=== PATIENT | male | born 1965 | race Hispanic/Latino ===

== ENCOUNTER 2022-01-14 20:10 | Inpatient (IN) | payer OTHER ==
[~2022-01-14] VITALS: Ht 162.6 cm; Wt 49.0 kg
[~2022-01-14 20:10] MED LIST: AMOX1TAB16 PO; ETOMIDATE 20MG VIAL IVP ONE; ROCURONIUM BROMIDE 10MG/1ML 5ML VL IV ONE
[2022-01-14] MEDS ORDERED: 0.9%NACL 1000ML 1,000 ML IV ONE (21:30)
[2022-01-14 22:04] LABS: BASOPHILS % (AUTO) 0.7 % (0.0-5.0); HEMATOCRIT 28.2 % (42-54); MEAN CORPUSCULAR HEMOGLOBIN 25.9 pg (27.0-33.0); MEAN CORPUSCULAR HGB CONC 32.3 g/dL (32.0-36.0); MEAN CORPUSCULAR VOLUME 80.3 fL (79-99); MONOCYTES % (AUTO) 4.5 % (3.0-13.0); NEUTROPHILS % (AUTO) 20.9 % (40.0-77.0); PLATELET COUNT (AUTO) 144 K/uL (130-400); RED BLOOD CELL COUNT(AUTO) 3.51 MIL/uL (4.50-6.20); RED CELL DISTRIBUTION WIDTH 17.2 % (11.0-15.5); WHITE BLOOD COUNT (AUTO) 1.3 K/uL (4.8-10.8)
[2022-01-14 22:15] LABS: CARBON DIOXIDE 30 mmol/L (21-32); CHLORIDE 101 mmol/L (101-111); GLOMERULAR FILTR. RATE CALC 82 mL/min (>60); GLUCOSE,RANDOM 54 mg/dL (70-105); POTASSIUM 3.6 mmol/L (3.5-5.1); SODIUM SERUM 140 mmol/L (136-145); UREA NITROGEN, BLOOD 41 mg/dL (7-18)
[2022-01-14 22:19] LABS: ALANINE AMINOTRANSFERASE 85 U/L (12-78); ALBUMIN 1.3 g/dL (3.5-5.0); ASPARTATE AMINOTRANSFERASE 352 U/L (10-37); CREATINE KINASE, TOTAL 118 U/L (21-232); TOTAL PROTEIN, SERUM 5.3 g/dL (6.0-8.3)
[2022-01-14 22:22] LABS: INR 1.57 (0.85-1.15); PROTHROMBIN TIME 16.7 SEC (9.6-11.6)
[2022-01-14 22:23] LABS: LIPASE < 10 U/L (114-286)
[2022-01-14] MEDS ORDERED: DEXTROSE 50%-WATER 50 ML DISP.SYRIN IV ONE (22:30)
[2022-01-14 23:43] LABS: PLATELET MORPHOLOGY LARGE PLTS PRESENT
[2022-01-15] VITALS (48 sets, daily range): BP systolic 71–116; BP diastolic 41–72
[2022-01-15] MEDS ORDERED: 0.9%NACL 1000ML 1,000 ML IV SCH ×2 (02:30→03:30)
[2022-01-15] MEDS ORDERED: MORPHINE 2 MG SYG IV PRN (02:30)
[2022-01-15] MEDS ORDERED: ACETAMINOPHEN 325 MG TAB PO PRN ×2 (02:30)
[2022-01-15] MEDS ORDERED: ONDANSETRON 4MG INJ IV PRN (02:30)
[2022-01-15] MEDS ORDERED: DEXTROSE 50%-WATER 50 ML DISP.SYRIN IV ONE ×3 (04:20→11:18)
[2022-01-15] MEDS ORDERED: DEXTROSE 5%-WATER 1,000 ML IV SCH (04:30)
[2022-01-15 04:58] LABS: ABG HCO3 25.2 mmol/L (21.0-28.0); ABG OXYGEN SATURATION 92.8 % (95.0-99.0); ABG PCO2 35 mmHg (35-48)
[2022-01-15] MEDS ORDERED: ZOSYN 3.375GM +NS 50ML IV SCH (05:00)
[2022-01-15] MEDS ORDERED: IPRATROPIUM/ALBUTEROL SULFATE 3 ML SOLUTION IH ONE (05:00)
[2022-01-15 05:22] LABS: HEMATOCRIT 26.9 % (42-54); LYMPHOCYTES % (AUTO) 5.9 % (21.0-51.0); MEAN CORPUSCULAR HGB CONC 32.3 g/dL (32.0-36.0); MEAN CORPUSCULAR VOLUME 80.5 fL (79-99); MONOCYTES % (AUTO) 4.4 % (3.0-13.0); NEUTROPHILS % (AUTO) 7.3 % (40.0-77.0); PLATELET COUNT (AUTO) 157 K/uL (130-400); RED BLOOD CELL COUNT(AUTO) 3.34 MIL/uL (4.50-6.20); RED CELL DISTRIBUTION WIDTH 17.3 % (11.0-15.5)
[2022-01-15 05:24] LABS: WHITE BLOOD COUNT (AUTO) 0.7 K/uL (4.8-10.8)
[2022-01-15 05:39] LABS: ALBUMIN 1.1 g/dL (3.5-5.0); CREATININE 0.9 mg/dL (0.5-1.5); POTASSIUM 4.5 mmol/L (3.5-5.1); TOTAL PROTEIN, SERUM 4.7 g/dL (6.0-8.3)
[2022-01-15] MEDS ORDERED: ALBUMIN (HUMAN) 25% 100 ML IV PRN (06:30)
[2022-01-15] MEDS ORDERED: DEXTROSE 5%-WATER 250 ML IV ONE (06:31)
[2022-01-15] MEDS ORDERED: ALBUMIN (HUMAN) 25% 100 ML IV ONE (06:31)
[2022-01-15 08:56] LABS: APPEARANCE,URINE SL CLOUDY (CLEAR); BILIRUBIN,URINE NEGATIVE (NEGATIVE); COLOR,URINE RED (YELLOW); GLUCOSE, URINE (UA) NEGATIVE (NEGATIVE); KETONES,URINE 5 mg/dL (NEGATIVE); LEUKOCYTE ESTERASE ,URINE TRACE Leu/uL (NEGATIVE); NITRATE,URINE NEGATIVE (NEGATIVE); OCCULT BLOOD,URINE LARGE (NEGATIVE); PH,URINE 5.5 (5.0-8.0); PROTEIN,URINE 100 mg/dL (NEGATIVE)
[2022-01-15] MEDS ORDERED: FAMOTIDINE 20MG VIAL IV SCH (09:00)
[2022-01-15] MEDS ORDERED: 0.9%NACL 1000ML 1,185 ML IV SCH (09:00)
[2022-01-15] MEDS ORDERED: RENAL DOSE IV PRN (09:00)
[2022-01-15] MEDS ORDERED: BACTRIM 800MG/160MG 10ML VIAL 0 MG in 0.9%NACL 100ML 100 ML IV SCH (09:00)
[2022-01-15 09:11] LABS: AMPHET/METH SCREEN,URINE NEGATIVE (NEGATIVE); BARBITURATE SCREEN, URINE NEGATIVE (NEGATIVE); BENZODIAZEPINES SCREEN,URINE NEGATIVE (NEGATIVE); CANNABINOID SCREEN,URINE NEGATIVE (NEGATIVE); COCAINE SCREEN,URINE NEGATIVE (NEGATIVE); OPIATE SCREEN,URINE NEGATIVE (NEGATIVE); PHENCYCLIDINE SCREEN,URINE NEGATIVE (NEGATIVE)
[2022-01-15] MEDS: NOREPINEPHRIN 4MG/NS 250ML 250 ML IV PRN ×6 (09:11→18:09)
[2022-01-15 09:12] LABS: BACTERIA,URINE Few /HPF (None Seen); RBC,URINE T /HPF (0-1)
[2022-01-15] MEDS ORDERED: SOLU-MEDROL 40MG VIAL IVP SCH (09:30)
[2022-01-15] MEDS ORDERED: THIAMINE HCL 100 MG/ML 2ML VIAL IVP SCH (09:30)
[2022-01-15] MEDS: M.V.I. IV [ADULT] 10 ML, FOLIC ACID 1 MG, THIAMINE HCL 100 MG in 0.9%NACL 1000ML 1,000 ML IV SCH (09:39)
[2022-01-15 09:59] LABS: CREATINE KINASE, TOTAL 81 U/L (21-232); MYOGLOBIN 571 ng/mL (10-92)
[2022-01-15] MEDS ORDERED: VASOPRESSIN 20 UNITS in 0.9%NACL 100ML 100 ML IV SCH (10:00)
[2022-01-15] MEDS: PANTOPRAZOLE 40 MG/VIAL IVP SCH ×2 (10:12→20:01)
[2022-01-15 11:22] LABS: ABG BASE EXCESS -2.9 mmol/L (-2.0-3.0); ABG HCO3 22.2 mmol/L (21.0-28.0); ABG OXYGEN SATURATION 65.4 % (95.0-99.0); ABG PCO2 40 mmHg (35-48)
[2022-01-15] MEDS: IPRATROPIUM/ALBUTEROL SULFATE 3 ML SOLUTION IH SCH ×3 (11:29→23:21)
[2022-01-15] MEDS ORDERED: FENTANYL 2500MCG+NS 250ML 250 ML IV ONE (11:57)
[2022-01-15] MEDS ORDERED: FENTANYL 2500MCG+NS 250ML IV.SOLN IV SCH (12:30)
[2022-01-15 12:41] LABS: ABG BASE EXCESS -7.1 mmol/L (-2.0-3.0); ABG HCO3 20.5 mmol/L (21.0-28.0); ABG OXYGEN SATURATION 92.4 % (95.0-99.0); ABG PCO2 51 mmHg (35-48)
[2022-01-15] MEDS: ZOSYN 3.375GM +NS 50ML IV SCH ×2 (13:11→20:01)
[2022-01-15] MEDS: MIDAZOLAM 100MG-0.9% NS 100ML 100ML BAG IV SCH (13:13)
[2022-01-15] MEDS ORDERED: KCL 20 MEQ ERTAB PO PRN (13:30)
[2022-01-15] MEDS ORDERED: LIDOCAINE HCL-MPF 1% 2ML VIAL IV PRN (13:30)
[2022-01-15] MEDS ORDERED: GLUCAGON 1MG KIT 1 MG ML IM PRN (14:00)
[2022-01-15] MEDS ORDERED: BACTRIM IV SCH (14:00)
[2022-01-15] MEDS ORDERED: 0.9% NACL 250ML IV SCH (14:00)
[2022-01-15] MEDS ORDERED: VANCOMYCIN PROTOCOL PER PHARMACY IV SCH (14:00)
[2022-01-15] MEDS ORDERED: PANTOPRAZOLE 40 MG/VIAL IVP SCH (14:00)
[2022-01-15] MEDS ORDERED: VANCOMYCIN 1G VIAL IVPB SCH (14:00)
[2022-01-15] MEDS ORDERED: NACL 0.9% IV SCH (14:00)
[2022-01-15 14:07] LABS: POTASSIUM 3.5 mmol/L (3.5-5.1)
[2022-01-15] MEDS: BACTRIM IV SCH ×2 (14:49→21:04)
[2022-01-15] MEDS: NACL 0.9% IV SCH ×2 (14:49→21:04)
[2022-01-15] MEDS: POTASSIUM CHLORIDE 10% ELIXIR 20 MEQ/15 ML UDCUP PO PRN ×2 (14:50→18:09)
[2022-01-15] MEDS: HEPARIN 5,000 UNIT VIAL SQ SCH (14:51)
[2022-01-15] MEDS: VANCOMYCIN 750MG VIAL IVPB SCH (15:24)
[2022-01-15] MEDS: 0.9% NACL 250ML 250 ML IV SCH (15:24)
[2022-01-15] MEDS: SOLU-MEDROL 40MG VIAL IVP SCH (16:38)
[2022-01-15] MEDS ORDERED: PHARMACY COMMUNICATION MISC SCH (19:30)
[2022-01-15] MEDS: NOREPINEPHRINE 16MG/NS 250ML 250 ML IV SCH (20:59)
[2022-01-15] MEDS ORDERED: VASOPRESSIN 40 UNITS in 0.9%NACL 50ML 40 ML IV SCH (21:30)
[2022-01-15 21:49] LABS: ABG BASE EXCESS -7.9 mmol/L (-2.0-3.0); ABG HCO3 21.1 mmol/L (21.0-28.0); ABG OXYGEN SATURATION 95.8 % (95.0-99.0); ABG PCO2 62 mmHg (35-48)
[2022-01-15] MEDS ORDERED: LACTATED RINGERS 1000ML IV SCH (22:30)
[2022-01-15] MEDS ORDERED: EPINEPHRINE PF 1MG (1:1,000) 10 MG in 0.9% NACL 250ML 250 ML IV SCH (23:00)
[2022-01-15] MEDS ORDERED: PHENYLEPHRINE HCL 100 MG in 0.9% NACL 250ML 250 ML IV SCH (23:00)
[2022-01-15] MEDS: LACTATED RINGERS 1000ML 1,000 ML IV SCH (23:08)
[2022-01-15] MEDS: DEXTROSE 10%-WATER 1,000 ML IV SCH (23:10)
[2022-01-15] MEDS: DEXTROSE 50%-WATER 50 ML DISP.SYRIN IV PRN (23:42)
[2022-01-16] VITALS (84 sets, daily range): BP systolic 62–130; BP diastolic 40–90
[2022-01-16] MEDS: SOLU-MEDROL 40MG VIAL IVP SCH ×3 (00:59→18:34)
[2022-01-16] MEDS: HEPARIN 5,000 UNIT VIAL SQ SCH (01:01)
[2022-01-16] MEDS: NOREPINEPHRINE 16MG/NS 250ML 250 ML IV SCH ×4 (03:09→23:31)
[2022-01-16] MEDS: ZOSYN 3.375GM +NS 50ML IV SCH ×3 (04:09→20:22)
[2022-01-16 04:28] LABS: BASOPHILS % (AUTO) 0.3 % (0.0-5.0); HEMATOCRIT 26.1 % (42-54); LYMPHOCYTES % (AUTO) 2.7 % (21.0-51.0); MEAN CORPUSCULAR HEMOGLOBIN 25.6 pg (27.0-33.0); MEAN CORPUSCULAR HGB CONC 30.7 g/dL (32.0-36.0); MEAN CORPUSCULAR VOLUME 83.7 fL (79-99); MONOCYTES % (AUTO) 5.4 % (3.0-13.0); NEUTROPHILS % (AUTO) 74.1 % (40.0-77.0); PLATELET COUNT (AUTO) 82 K/uL (130-400); RED BLOOD CELL COUNT(AUTO) 3.12 MIL/uL (4.50-6.20); RED CELL DISTRIBUTION WIDTH 17.2 % (11.0-15.5); WHITE BLOOD COUNT (AUTO) 3.3 K/uL (4.8-10.8)
[2022-01-16 04:43] LABS: ALBUMIN 1.1 g/dL (3.5-5.0); MAGNESIUM 1.7 mg/dL (1.80-2.40); PHOSPHORUS 7.1 mg/dL (2.5-4.9)
[2022-01-16] MEDS: MAGNESIUM 2GM PREMIX 50ML 50 ML IV PRN (05:07)
[2022-01-16] MEDS: IPRATROPIUM/ALBUTEROL SULFATE 3 ML SOLUTION IH SCH ×4 (06:15→23:32)
[2022-01-16] MEDS: BACTRIM IV SCH ×3 (06:51→22:24)
[2022-01-16] MEDS: NACL 0.9% IV SCH ×3 (06:51→22:24)
[2022-01-16 07:47] LABS: ABG BASE EXCESS -7.8 mmol/L (-2.0-3.0); ABG HCO3 17.9 mmol/L (21.0-28.0); ABG OXYGEN SATURATION 99.2 % (95.0-99.0); ABG PCO2 37 mmHg (35-48)
[2022-01-16] MEDS ORDERED: DEXTROSE 50%-WATER 50 ML DISP.SYRIN IV PRN (08:00)
[2022-01-16] MEDS ORDERED: MAGNESIUM 2GM PREMIX 50ML 50 ML IV PRN (08:00)
[2022-01-16] MEDS ORDERED: SODIUM BICARB 50MEQ 50ML VIAL IV SCH (08:00)
[2022-01-16] MEDS ORDERED: GLUCAGON 1MG KIT 1 MG ML IM PRN (08:00)
[2022-01-16] MEDS: M.V.I. IV [ADULT] 10 ML, FOLIC ACID 1 MG, THIAMINE HCL 100 MG in 0.9%NACL 1000ML 1,000 ML IV SCH (08:05)
[2022-01-16] MEDS: LACTATED RINGERS 1000ML 1,000 ML IV SCH (08:06)
[2022-01-16] MEDS ORDERED: PANTOPRAZOLE 40 MG/VIAL IVP SCH (09:00)
[2022-01-16] MEDS: PANTOPRAZOLE 40 MG/VIAL IVP SCH ×2 (09:23→20:22)
[2022-01-16] MEDS: FLUCONAZOLE 400 MG/NS 200 ML 200 ML IV SCH (09:24)
[2022-01-16] MEDS: THIAMINE HCL 100 MG/ML 2ML VIAL IVP SCH (09:24)
[2022-01-16] MEDS ORDERED: PHENTOLAMINE MESYLATE 5 MG VIAL ICAV SCH (11:00)
[2022-01-16] MEDS: MIDAZOLAM 100MG-0.9% NS 100ML 100ML BAG IV SCH (12:23)
[2022-01-16] MEDS: ARTIFICIAL TEARS 3.5 GM OINTMENT OU SCH (12:31)
[2022-01-16] MEDS: CHLORHEXIDINE GLUCONATE 473 ML MOUTHWASH MM SCH ×2 (12:31→20:23)
[2022-01-16 13:48] LABS: ABG BASE EXCESS -4.6 mmol/L (-2.0-3.0); ABG HCO3 20.6 mmol/L (21.0-28.0); ABG OXYGEN SATURATION 77.1 % (95.0-99.0); ABG PCO2 38 mmHg (35-48)
[2022-01-16 14:04] LABS: ABG BASE EXCESS -5.3 mmol/L (-2.0-3.0); ABG HCO3 19.5 mmol/L (21.0-28.0); ABG OXYGEN SATURATION 98.9 % (95.0-99.0); ABG PCO2 35 mmHg (35-48)
[2022-01-16] MEDS: VANCOMYCIN 750MG VIAL IVPB SCH (14:40)
[2022-01-16] MEDS: 0.9% NACL 250ML 250 ML IV SCH (14:40)
[2022-01-16] MEDS: DEXTROSE 10%-WATER 1,000 ML IV SCH (23:27)
[2022-01-17] VITALS (50 sets, daily range): BP systolic 85–122; BP diastolic 54–89
[2022-01-17] MEDS: SOLU-MEDROL 40MG VIAL IVP SCH ×3 (01:54→17:54)
[2022-01-17 04:10] LABS: MAGNESIUM 1.9 mg/dL (1.80-2.40); PHOSPHORUS 4.9 mg/dL (2.5-4.9); POTASSIUM 3.6 mmol/L (3.5-5.1); TOTAL PROTEIN, SERUM 4.1 g/dL (6.0-8.3)
[2022-01-17] MEDS: ZOSYN 3.375GM +NS 50ML IV SCH ×3 (04:42→21:08)
[2022-01-17] MEDS: MAGNESIUM 2GM PREMIX 50ML 50 ML IV PRN (04:43)
[2022-01-17] MEDS: NOREPINEPHRINE 16MG/NS 250ML 250 ML IV SCH ×2 (04:51→16:22)
[2022-01-17 05:52] LABS: BASOPHILS % (AUTO) 0.6 % (0.0-5.0); HEMATOCRIT 24.5 % (42-54); LYMPHOCYTES % (AUTO) 2.7 % (21.0-51.0); MEAN CORPUSCULAR HEMOGLOBIN 26.2 pg (27.0-33.0); MEAN CORPUSCULAR HGB CONC 32.2 g/dL (32.0-36.0); MEAN CORPUSCULAR VOLUME 81.4 fL (79-99); MONOCYTES % (AUTO) 4.5 % (3.0-13.0); NEUTROPHILS % (AUTO) 77.4 % (40.0-77.0); RED BLOOD CELL COUNT(AUTO) 3.01 MIL/uL (4.50-6.20); RED CELL DISTRIBUTION WIDTH 17.3 % (11.0-15.5); WHITE BLOOD COUNT (AUTO) 4.9 K/uL (4.8-10.8)
[2022-01-17 05:59] LABS: PLATELET COUNT (AUTO) 18 K/uL (130-400)
[2022-01-17] MEDS: IPRATROPIUM/ALBUTEROL SULFATE 3 ML SOLUTION IH SCH ×4 (06:25→23:23)
[2022-01-17] MEDS: NACL 0.9% IV SCH ×3 (07:24→21:08)
[2022-01-17] MEDS: M.V.I. IV [ADULT] 10 ML, FOLIC ACID 1 MG, THIAMINE HCL 100 MG in 0.9%NACL 1000ML 1,000 ML IV SCH (07:24)
[2022-01-17] MEDS: BACTRIM IV SCH ×3 (07:24→21:08)
[2022-01-17 08:13] LABS: ABG HCO3 20.6 mmol/L (21.0-28.0); ABG OXYGEN SATURATION 79.3 % (95.0-99.0); ABG PCO2 40 mmHg (35-48)
[2022-01-17] MEDS: FLUCONAZOLE 400 MG/NS 200 ML 200 ML IV SCH (08:20)
[2022-01-17] MEDS: THIAMINE HCL 100 MG/ML 2ML VIAL IVP SCH (08:21)
[2022-01-17] MEDS: PANTOPRAZOLE 40 MG/VIAL IVP SCH ×2 (08:21→21:08)
[2022-01-17 08:37] LABS: ABG BASE EXCESS -5.2 mmol/L (-2.0-3.0); ABG HCO3 19.7 mmol/L (21.0-28.0); ABG PCO2 36 mmHg (35-48)
[2022-01-17] MEDS: CHLORHEXIDINE GLUCONATE 473 ML MOUTHWASH MM SCH ×2 (09:36→21:09)
[2022-01-17] MEDS: MIDAZOLAM 100MG-0.9% NS 100ML 100ML BAG IV SCH (12:24)
[2022-01-17] MEDS: DEXTROSE 10%-WATER 1,000 ML IV SCH (12:41)
[2022-01-17] MEDS ORDERED: VANCOMYCIN 1G/250ML KIT 250 ML IV ONE (16:00)
[2022-01-17] MEDS: ARTIFICIAL TEARS 3.5 GM OINTMENT OU SCH (21:09)
[2022-01-18] VITALS (49 sets, daily range): BP systolic 79–122; BP diastolic 44–81
[2022-01-18] MEDS: SOLU-MEDROL 40MG VIAL IVP SCH ×3 (01:39→16:49)
[2022-01-18] MEDS: NOREPINEPHRINE 16MG/NS 250ML 250 ML IV SCH (03:22)
[2022-01-18 03:32] LABS: BASOPHILS % (AUTO) 0.4 % (0.0-5.0); HEMATOCRIT 23.9 % (42-54); LYMPHOCYTES % (AUTO) 1.9 % (21.0-51.0); MEAN CORPUSCULAR HGB CONC 32.2 g/dL (32.0-36.0); MEAN CORPUSCULAR VOLUME 80.7 fL (79-99); MONOCYTES % (AUTO) 2.5 % (3.0-13.0); NEUTROPHILS % (AUTO) 82.7 % (40.0-77.0); PLATELET COUNT (AUTO) 22 K/uL (130-400); RED BLOOD CELL COUNT(AUTO) 2.96 MIL/uL (4.50-6.20); RED CELL DISTRIBUTION WIDTH 17.4 % (11.0-15.5); WHITE BLOOD COUNT (AUTO) 6.9 K/uL (4.8-10.8)
[2022-01-18 03:44] LABS: CREATININE 0.8 mg/dL (0.5-1.5); MAGNESIUM 1.8 mg/dL (1.80-2.40); PHOSPHORUS 3.6 mg/dL (2.5-4.9); POTASSIUM 3.8 mmol/L (3.5-5.1); TOTAL PROTEIN, SERUM 4.2 g/dL (6.0-8.3)
[2022-01-18] MEDS: ZOSYN 3.375GM +NS 50ML IV SCH ×3 (04:32→20:59)
[2022-01-18] MEDS: IPRATROPIUM/ALBUTEROL SULFATE 3 ML SOLUTION IH SCH ×3 (06:49→19:09)
[2022-01-18] MEDS: FLUCONAZOLE 400 MG/NS 200 ML 200 ML IV SCH (08:07)
[2022-01-18] MEDS: PANTOPRAZOLE 40 MG/VIAL IVP SCH ×2 (08:07→21:00)
[2022-01-18] MEDS: VANCOMYCIN 750MG VIAL IVPB SCH ×2 (08:07→17:07)
[2022-01-18] MEDS: THIAMINE HCL 100 MG/ML 2ML VIAL IVP SCH (08:07)
[2022-01-18] MEDS: CHLORHEXIDINE GLUCONATE 473 ML MOUTHWASH MM SCH ×2 (09:05→21:03)
[2022-01-18] MEDS: NACL 0.9% IV SCH ×3 (09:32→22:11)
[2022-01-18] MEDS: BACTRIM IV SCH ×3 (09:32→22:11)
[2022-01-18] MEDS: MIDAZOLAM 100MG-0.9% NS 100ML 100ML BAG IV SCH (11:58)
[2022-01-18] MEDS: M.V.I. IV [ADULT] 10 ML, FOLIC ACID 1 MG, THIAMINE HCL 100 MG in 0.9%NACL 1000ML 1,000 ML IV SCH (13:06)
[2022-01-18] MEDS: ARTIFICIAL TEARS 3.5 GM OINTMENT OU SCH (21:04)
[2022-01-19] VITALS (44 sets, daily range): BP systolic 85–124; BP diastolic 39–93
[2022-01-19] MEDS: IPRATROPIUM/ALBUTEROL SULFATE 3 ML SOLUTION IH SCH ×5 (01:06→23:20)
[2022-01-19] MEDS: SOLU-MEDROL 40MG VIAL IVP SCH ×3 (01:48→17:08)
[2022-01-19 05:31] LABS: BASOPHILS % (AUTO) 0.3 % (0.0-5.0); HEMATOCRIT 22.4 % (42-54); LYMPHOCYTES % (AUTO) 2.3 % (21.0-51.0); MEAN CORPUSCULAR HEMOGLOBIN 25.6 pg (27.0-33.0); MEAN CORPUSCULAR HGB CONC 32.1 g/dL (32.0-36.0); MEAN CORPUSCULAR VOLUME 79.7 fL (79-99); MONOCYTES % (AUTO) 3.1 % (3.0-13.0); NEUTROPHILS % (AUTO) 81.3 % (40.0-77.0); PLATELET COUNT (AUTO) 15 K/uL (130-400); RED BLOOD CELL COUNT(AUTO) 2.81 MIL/uL (4.50-6.20); RED CELL DISTRIBUTION WIDTH 17.8 % (11.0-15.5); WHITE BLOOD COUNT (AUTO) 6.2 K/uL (4.8-10.8)
[2022-01-19] MEDS: ZOSYN 3.375GM +NS 50ML IV SCH ×3 (05:31→20:47)
[2022-01-19] MEDS: VANCOMYCIN 750MG VIAL IVPB SCH ×2 (05:39→17:09)
[2022-01-19 05:48] LABS: CREATININE 0.7 mg/dL (0.5-1.5); MAGNESIUM 1.7 mg/dL (1.80-2.40); PHOSPHORUS 3.2 mg/dL (2.5-4.9); POTASSIUM 3.7 mmol/L (3.5-5.1); TOTAL PROTEIN, SERUM 4.2 g/dL (6.0-8.3)
[2022-01-19] MEDS: POTASSIUM CHLORIDE 10% ELIXIR 20 MEQ/15 ML UDCUP PO PRN (06:29)
[2022-01-19] MEDS: BACTRIM IV SCH ×3 (07:33→20:46)
[2022-01-19] MEDS: NACL 0.9% IV SCH ×3 (07:33→20:46)
[2022-01-19] MEDS: M.V.I. IV [ADULT] 10 ML, FOLIC ACID 1 MG, THIAMINE HCL 100 MG in 0.9%NACL 1000ML 1,000 ML IV SCH (08:00)
[2022-01-19 08:45] LABS: ABG BASE EXCESS -2.9 mmol/L (-2.0-3.0); ABG HCO3 19.9 mmol/L (21.0-28.0); ABG OXYGEN SATURATION 95.5 % (95.0-99.0); ABG PCO2 27 mmHg (35-48)
[2022-01-19] MEDS: CHLORHEXIDINE GLUCONATE 473 ML MOUTHWASH MM SCH ×2 (09:25→20:54)
[2022-01-19] MEDS: THIAMINE HCL 100 MG/ML 2ML VIAL IVP SCH (09:25)
[2022-01-19] MEDS: PANTOPRAZOLE 40 MG/VIAL IVP SCH ×2 (09:25→20:50)
[2022-01-19] MEDS: FLUCONAZOLE 400 MG/NS 200 ML 200 ML IV SCH (09:26)
[2022-01-19] MEDS: MAGNESIUM 2GM PREMIX 50ML 50 ML IV PRN (09:27)
[2022-01-19] MEDS ORDERED: DEXMEDETOMIDINE 400MCG/NS100ML IV ONE (10:58)
[2022-01-19] MEDS ORDERED: SODIUM CHLORIDE 3% FOR INHALATION 4 ML/AMP VIAL.NEB IH ONE (11:05)
[2022-01-19 12:11] LABS: ABG BASE EXCESS -1.5 mmol/L (-2.0-3.0); ABG HCO3 21.8 mmol/L (21.0-28.0); ABG OXYGEN SATURATION 98.3 % (95.0-99.0); ABG PCO2 30 mmHg (35-48)
[2022-01-19] MEDS: MIDAZOLAM 100MG-0.9% NS 100ML 100ML BAG IV SCH (12:30)
[2022-01-19] MEDS: DEXMEDETOMIDINE 400MCG/NS100ML IV SCH ×2 (13:24→20:49)
[2022-01-19] MEDS: BALSAM PERU/CASTOR OIL 60 GM TUBE TP SCH ×2 (14:13→20:54)
[2022-01-19] MEDS ORDERED: FUROSEMIDE 20MG VIAL IV SCH (15:30)
[2022-01-19] MEDS: POTASSIUM CHLORIDE 20MEQ/100ML 100 ML IV PRN (20:50)
[2022-01-19] MEDS: ARTIFICIAL TEARS 3.5 GM OINTMENT OU SCH (20:53)
[2022-01-20] VITALS (75 sets, daily range): BP systolic 78–124; BP diastolic 36–85
[2022-01-20] MEDS: SOLU-MEDROL 40MG VIAL IVP SCH ×2 (01:54→09:01)
[2022-01-20] MEDS ORDERED: NOREPINEPHRINE BITARTRATE 1 MG/1 ML ML IV ONE ×2 (03:48→03:53)
[2022-01-20 04:04] LABS: BASOPHILS % (AUTO) 0.1 % (0.0-5.0); HEMATOCRIT 24.2 % (42-54); LYMPHOCYTES % (AUTO) 2.2 % (21.0-51.0); MEAN CORPUSCULAR HEMOGLOBIN 25.7 pg (27.0-33.0); MEAN CORPUSCULAR HGB CONC 32.6 g/dL (32.0-36.0); MEAN CORPUSCULAR VOLUME 78.8 fL (79-99); MONOCYTES % (AUTO) 3.2 % (3.0-13.0); NEUTROPHILS % (AUTO) 76.2 % (40.0-77.0); NUCLEATED RED BLOOD CELLS 0.5 % (0.0-0.19); PLATELET COUNT (AUTO) 20 K/uL (130-400); RED BLOOD CELL COUNT(AUTO) 3.07 MIL/uL (4.50-6.20); RED CELL DISTRIBUTION WIDTH 18.4 % (11.0-15.5); WHITE BLOOD COUNT (AUTO) 7.8 K/uL (4.8-10.8)
[2022-01-20 04:29] LABS: % IRON SATURATION 65.3 % (30-44)
[2022-01-20 04:54] LABS: ALANINE AMINOTRANSFERASE 70 U/L (12-78); ASPARTATE AMINOTRANSFERASE 51 U/L (10-37); CARBON DIOXIDE 23 mmol/L (21-32); CHLORIDE 114 mmol/L (101-111); CREATININE 0.6 mg/dL (0.5-1.5); GLOMERULAR FILTR. RATE CALC 147 mL/min (>60); GLUCOSE,RANDOM 100 mg/dL (70-105); LACTATE DEHYDROGENASE 471 U/L (81-234); POTASSIUM 4.1 mmol/L (3.5-5.1); SODIUM SERUM 147 mmol/L (136-145); THYROID STIMULATING HORMONE 4.77 uIU/mL (0.36-3.74); TOTAL PROTEIN, SERUM 4.1 g/dL (6.0-8.3); UREA NITROGEN, BLOOD 31 mg/dL (7-18)
[2022-01-20] MEDS: VANCOMYCIN 750MG VIAL IVPB SCH ×2 (05:07→17:37)
[2022-01-20] MEDS: IPRATROPIUM/ALBUTEROL SULFATE 3 ML SOLUTION IH SCH ×3 (06:28→19:04)
[2022-01-20] MEDS: M.V.I. IV [ADULT] 10 ML, FOLIC ACID 1 MG, THIAMINE HCL 100 MG in 0.9%NACL 1000ML 1,000 ML IV SCH (08:00)
[2022-01-20] MEDS: CHLORHEXIDINE GLUCONATE 473 ML MOUTHWASH MM SCH ×2 (08:58→21:16)
[2022-01-20] MEDS: BACTRIM IV SCH ×3 (08:59→21:22)
[2022-01-20] MEDS: BALSAM PERU/CASTOR OIL 60 GM TUBE TP SCH ×2 (08:59→21:17)
[2022-01-20] MEDS: NACL 0.9% IV SCH ×3 (08:59→21:22)
[2022-01-20] MEDS: FUROSEMIDE 20MG VIAL IV SCH ×3 (09:00→17:48)
[2022-01-20] MEDS: THIAMINE HCL 100 MG/ML 2ML VIAL IVP SCH (09:01)
[2022-01-20] MEDS: PANTOPRAZOLE 40 MG/VIAL IVP SCH ×2 (09:01→21:15)
[2022-01-20] MEDS: FLUCONAZOLE 400 MG/NS 200 ML 200 ML IV SCH (09:01)
[2022-01-20] MEDS ORDERED: FUROSEMIDE 20MG VIAL IV SCH (10:00)
[2022-01-20] MEDS ORDERED: COMPOUND IV REFRIGERATED 1 EACH IVSOLN MISC PRN (10:00)
[2022-01-20] MEDS ORDERED: EPOETIN ALFA-EPBX (NON-ESRD) 10,000 UNIT/ML VIAL SQ SCH (11:00)
[2022-01-20] MEDS: MIDAZOLAM 100MG-0.9% NS 100ML 100ML BAG IV SCH (12:30)
[2022-01-20 14:47] LABS: ABG BASE EXCESS -1.4 mmol/L (-2.0-3.0); ABG HCO3 21.4 mmol/L (21.0-28.0); ABG OXYGEN SATURATION 94.1 % (95.0-99.0); ABG PCO2 31 mmHg (35-48)
[2022-01-20] MEDS: HYDROCORTISONE SOD SUCCINATE 100 MG/2 ML VIAL IV SCH ×2 (15:07→21:15)
[2022-01-20] MEDS: FOLIC ACID 5 MG/ML VIAL IV SCH (15:08)
[2022-01-20] MEDS: DEXMEDETOMIDINE 400MCG/NS100ML IV SCH (16:28)
[2022-01-20] MEDS: MIDODRINE HCL 5 MG TABLET PO SCH (21:00)
[2022-01-20] MEDS: ARTIFICIAL TEARS 3.5 GM OINTMENT OU SCH (21:16)
[2022-01-21] VITALS (88 sets, daily range): BP systolic 79–111; BP diastolic 40–76
[2022-01-21] MEDS: IPRATROPIUM/ALBUTEROL SULFATE 3 ML SOLUTION IH SCH ×5 (00:37→23:32)
[2022-01-21] MEDS: DEXMEDETOMIDINE 400MCG/NS100ML IV SCH ×4 (03:02→21:45)
[2022-01-21 04:14] LABS: BASOPHILS % (AUTO) 0.3 % (0.0-5.0); HEMATOCRIT 25.7 % (42-54); LYMPHOCYTES % (AUTO) 1.8 % (21.0-51.0); MEAN CORPUSCULAR HEMOGLOBIN 25.9 pg (27.0-33.0); MEAN CORPUSCULAR HGB CONC 32.7 g/dL (32.0-36.0); MEAN CORPUSCULAR VOLUME 79.3 fL (79-99); MONOCYTES % (AUTO) 2.4 % (3.0-13.0); NUCLEATED RED BLOOD CELLS 0.2 % (0.0-0.19); PLATELET COUNT (AUTO) 45 K/uL (130-400); RED BLOOD CELL COUNT(AUTO) 3.24 MIL/uL (4.50-6.20); RED CELL DISTRIBUTION WIDTH 18.5 % (11.0-15.5); WHITE BLOOD COUNT (AUTO) 11.9 K/uL (4.8-10.8)
[2022-01-21 04:29] LABS: ALBUMIN 1.2 g/dL (3.5-5.0); CREATININE 1.1 mg/dL (0.5-1.5); PHOSPHORUS 6.3 mg/dL (2.5-4.9); POTASSIUM 4.8 mmol/L (3.5-5.1); TOTAL PROTEIN, SERUM 4.5 g/dL (6.0-8.3)
[2022-01-21 04:37] LABS: B-TYPE NATRIURETIC PEPTIDE 715 pg/mL (0-100)
[2022-01-21] MEDS: DEXTROSE 50%-WATER 50 ML DISP.SYRIN IV PRN ×2 (04:48→10:51)
[2022-01-21] MEDS: LEVOTHYROXINE 100MCG VIAL IV SCH (06:29)
[2022-01-21] MEDS: VANCOMYCIN 750MG VIAL IVPB SCH (06:30)
[2022-01-21] MEDS: FLUCONAZOLE 400 MG/NS 200 ML 200 ML IV SCH (08:10)
[2022-01-21] MEDS: NACL 0.9% IV SCH ×3 (08:11→21:05)
[2022-01-21] MEDS: BACTRIM IV SCH ×3 (08:11→21:05)
[2022-01-21] MEDS: FOLIC ACID 5 MG/ML VIAL IV SCH (08:12)
[2022-01-21] MEDS: HYDROCORTISONE SOD SUCCINATE 100 MG/2 ML VIAL IV SCH ×4 (08:12→20:43)
[2022-01-21] MEDS: PANTOPRAZOLE 40 MG/VIAL IVP SCH ×2 (08:12→20:44)
[2022-01-21] MEDS: THIAMINE HCL 100 MG/ML 2ML VIAL IVP SCH (08:12)
[2022-01-21] MEDS: IRON SUCROSE COMPLEX 100 MG/5 ML VIAL IVP SCH (08:12)
[2022-01-21] MEDS: FUROSEMIDE 20MG VIAL IV SCH ×3 (08:12→16:19)
[2022-01-21] MEDS: BALSAM PERU/CASTOR OIL 60 GM TUBE TP SCH ×2 (08:13→21:06)
[2022-01-21] MEDS: MIDODRINE HCL 5 MG TABLET PO SCH ×3 (08:13→21:00)
[2022-01-21] MEDS: CHLORHEXIDINE GLUCONATE 473 ML MOUTHWASH MM SCH ×2 (08:13→21:05)
[2022-01-21] MEDS ORDERED: IRON SUCROSE COMPLEX 200 MG in 0.9%NACL 50ML 50 ML IV SCH (09:00)
[2022-01-21] MEDS ORDERED: ALBUMIN (HUMAN) 25% 50 ML IV SCH (09:00)
[2022-01-21 10:39] LABS: ABG BASE EXCESS -3.7 mmol/L (-2.0-3.0); ABG OXYGEN SATURATION 92.1 % (95.0-99.0); ABG PCO2 37 mmHg (35-48)
[2022-01-21] MEDS ORDERED: CLINIMIX-E 5%AA /D15%W 2000ML 2,000 ML IV SCH (15:00)
[2022-01-21] MEDS: ALBUMIN (HUMAN) 25% 50 ML IV SCH ×2 (16:19→21:08)
[2022-01-21] MEDS: NOREPINEPHRINE 16MG/NS 250ML 250 ML IV SCH (16:58)
[2022-01-21] MEDS: ARTIFICIAL TEARS 3.5 GM OINTMENT OU SCH (21:06)
[2022-01-22] VITALS (88 sets, daily range): BP systolic 73–110; BP diastolic 43–65
[2022-01-22] MEDS ORDERED: MORPHINE 2 MG SYG IVP ONE ×2 (01:00→05:00)
[2022-01-22 01:17] LABS: ALBUMIN 1.5 g/dL (3.5-5.0); CREATININE 1.1 mg/dL (0.5-1.5); MAGNESIUM 1.9 mg/dL (1.80-2.40); PHOSPHORUS 6.2 mg/dL (2.5-4.9); TOTAL PROTEIN, SERUM 4.1 g/dL (6.0-8.3)
[2022-01-22 01:33] LABS: BASOPHILS % (AUTO) 0.1 % (0.0-5.0); HEMATOCRIT 21.3 % (42-54); LYMPHOCYTES % (AUTO) 0.9 % (21.0-51.0); MEAN CORPUSCULAR HEMOGLOBIN 25.8 pg (27.0-33.0); MEAN CORPUSCULAR HGB CONC 30.5 g/dL (32.0-36.0); MEAN CORPUSCULAR VOLUME 84.5 fL (79-99); NEUTROPHILS % (AUTO) 90.5 % (40.0-77.0); NUCLEATED RED BLOOD CELLS 0.2 % (0.0-0.19); PLATELET COUNT (AUTO) 66 K/uL (130-400); RED BLOOD CELL COUNT(AUTO) 2.52 MIL/uL (4.50-6.20); RED CELL DISTRIBUTION WIDTH 18.6 % (11.0-15.5); WHITE BLOOD COUNT (AUTO) 8.7 K/uL (4.8-10.8)
[2022-01-22] MEDS: MAGNESIUM 2GM PREMIX 50ML 50 ML IV PRN (01:49)
[2022-01-22] MEDS: DEXMEDETOMIDINE 400MCG/NS100ML IV SCH ×4 (03:56→23:06)
[2022-01-22 04:06] LABS: ABG HCO3 24.8 mmol/L (21.0-28.0); ABG PCO2 50 mmHg (35-48)
[2022-01-22 04:42] LABS: ABG BASE EXCESS -4.3 mmol/L (-2.0-3.0); ABG HCO3 24.7 mmol/L (21.0-28.0); ABG OXYGEN SATURATION 82.1 % (95.0-99.0); ABG PCO2 63 mmHg (35-48)
[2022-01-22] MEDS: LEVOTHYROXINE 100MCG VIAL IV SCH (05:20)
[2022-01-22] MEDS: ALBUMIN (HUMAN) 25% 50 ML IV SCH (05:20)
[2022-01-22] MEDS: IPRATROPIUM/ALBUTEROL SULFATE 3 ML SOLUTION IH SCH ×4 (06:38→23:44)
[2022-01-22] MEDS: BACTRIM IV SCH ×3 (07:07→22:12)
[2022-01-22] MEDS: NACL 0.9% IV SCH ×3 (07:07→22:12)
[2022-01-22] MEDS: FUROSEMIDE 20MG VIAL IV SCH ×3 (07:48→20:34)
[2022-01-22 08:16] LABS: BASOPHILS % (AUTO) 0.1 % (0.0-5.0); HEMATOCRIT 22.6 % (42-54); LYMPHOCYTES % (AUTO) 1.5 % (21.0-51.0); MEAN CORPUSCULAR HEMOGLOBIN 27.1 pg (27.0-33.0); MEAN CORPUSCULAR HGB CONC 31.9 g/dL (32.0-36.0); MONOCYTES % (AUTO) 2.3 % (3.0-13.0); NEUTROPHILS % (AUTO) 88.8 % (40.0-77.0); NUCLEATED RED BLOOD CELLS 0.2 % (0.0-0.19); PLATELET COUNT (AUTO) 66 K/uL (130-400); RED BLOOD CELL COUNT(AUTO) 2.66 MIL/uL (4.50-6.20); RED CELL DISTRIBUTION WIDTH 17.4 % (11.0-15.5); WHITE BLOOD COUNT (AUTO) 10.4 K/uL (4.8-10.8)
[2022-01-22] MEDS: BALSAM PERU/CASTOR OIL 60 GM TUBE TP SCH ×2 (08:36→20:37)
[2022-01-22] MEDS: MIDODRINE HCL 5 MG TABLET PO SCH ×3 (08:36→19:45)
[2022-01-22] MEDS: IRON SUCROSE COMPLEX 100 MG/5 ML VIAL IVP SCH (08:36)
[2022-01-22] MEDS: PANTOPRAZOLE 40 MG/VIAL IVP SCH ×2 (08:36→20:34)
[2022-01-22] MEDS: FLUCONAZOLE 400 MG/NS 200 ML 200 ML IV SCH (08:36)
[2022-01-22] MEDS: THIAMINE HCL 100 MG/ML 2ML VIAL IVP SCH (08:36)
[2022-01-22] MEDS: CHLORHEXIDINE GLUCONATE 473 ML MOUTHWASH MM SCH ×2 (08:37→20:36)
[2022-01-22] MEDS: HYDROCORTISONE SOD SUCCINATE 100 MG/2 ML VIAL IV SCH ×3 (08:39→20:33)
[2022-01-22] MEDS: FOLIC ACID 5 MG/ML VIAL IV SCH (08:40)
[2022-01-22] MEDS: VANCOMYCIN 750MG VIAL IVPB SCH ×2 (10:06→20:34)
[2022-01-22 17:00] LABS: HEMATOCRIT 27.2 % (42-54)
[2022-01-22 17:27] LABS: APPEARANCE,URINE CLOUDY (CLEAR); BILIRUBIN,URINE NEGATIVE (NEGATIVE); COLOR,URINE LIGHT-ORANGE (YELLOW); GLUCOSE, URINE (UA) NEGATIVE (NEGATIVE); KETONES,URINE NEGATIVE (NEGATIVE); LEUKOCYTE ESTERASE ,URINE NEGATIVE Leu/uL (NEGATIVE); NITRATE,URINE NEGATIVE (NEGATIVE); OCCULT BLOOD,URINE LARGE (NEGATIVE); PH,URINE 5.5 (5.0-8.0); PROTEIN,URINE NEGATIVE (NEGATIVE); UROBILINOGEN,URINE 0.2 mg/dL (0.2-1.0)
[2022-01-22 17:34] LABS: BACTERIA,URINE RARE /HPF (None Seen); MUCUS,URINE RARE LPF (None Seen); SQUAMOUS EPITHELIAL CELL,UR FEW /HPF (0-2)
[2022-01-22] MEDS ORDERED: CLINIMIX-E 5%AA /D15%W 2000ML 2,000 ML IV SCH (18:00)
[2022-01-22] MEDS: ARTIFICIAL TEARS 3.5 GM OINTMENT OU SCH (20:37)
[2022-01-22] MEDS: DEXTROSE 5%-WATER 250 ML IV SCH (21:00)
[2022-01-23] VITALS (76 sets, daily range): BP systolic 81–124; BP diastolic 49–83
[2022-01-23 03:39] LABS: ABG BASE EXCESS 6.4 mmol/L (-2.0-3.0); ABG HCO3 32.6 mmol/L (21.0-28.0); ABG OXYGEN SATURATION 98.8 % (95.0-99.0); ABG PCO2 56 mmHg (35-48)
[2022-01-23 03:41] LABS: BASOPHILS % (AUTO) 0.2 % (0.0-5.0); HEMATOCRIT 26.3 % (42-54); LYMPHOCYTES % (AUTO) 1.1 % (21.0-51.0); MEAN CORPUSCULAR HGB CONC 32.3 g/dL (32.0-36.0); MEAN CORPUSCULAR VOLUME 83.5 fL (79-99); NEUTROPHILS % (AUTO) 88.9 % (40.0-77.0); NUCLEATED RED BLOOD CELLS 0.3 % (0.0-0.19); PLATELET COUNT (AUTO) 77 K/uL (130-400); RED BLOOD CELL COUNT(AUTO) 3.15 MIL/uL (4.50-6.20); RED CELL DISTRIBUTION WIDTH 17.5 % (11.0-15.5); WHITE BLOOD COUNT (AUTO) 15.9 K/uL (4.8-10.8)
[2022-01-23 03:49] LABS: CREATININE 0.8 mg/dL (0.5-1.5)
[2022-01-23 03:58] LABS: POTASSIUM 2.1 mmol/L (3.5-5.1)
[2022-01-23] MEDS: POTASSIUM CHLORIDE 20MEQ/100ML 100 ML IV PRN ×4 (04:03→17:17)
[2022-01-23] MEDS: NOREPINEPHRINE 16MG/NS 250ML 250 ML IV SCH (04:18)
[2022-01-23] MEDS: DEXMEDETOMIDINE 400MCG/NS100ML IV SCH ×4 (04:23→22:45)
[2022-01-23] MEDS: LEVOTHYROXINE 100MCG VIAL IV SCH (05:39)
[2022-01-23] MEDS: IPRATROPIUM/ALBUTEROL SULFATE 3 ML SOLUTION IH SCH ×4 (06:32→23:40)
[2022-01-23] MEDS ORDERED: RENAL DOSE IV SCH (09:00)
[2022-01-23] MEDS: DEXTROSE 5%-WATER 250 ML IV SCH ×2 (09:00→21:59)
[2022-01-23] MEDS ORDERED: 0.9%NACL 100ML 100 ML ONE (09:24)
[2022-01-23] MEDS ORDERED: EPOETIN ALFA-EPBX (NON-ESRD) 10,000 UNIT/ML VIAL SQ SCH (09:30)
[2022-01-23] MEDS: FLUCONAZOLE 400 MG/NS 200 ML 200 ML IV SCH (09:49)
[2022-01-23] MEDS: VANCOMYCIN 750MG VIAL IVPB SCH ×2 (09:50→21:59)
[2022-01-23] MEDS: IRON SUCROSE COMPLEX 100 MG/5 ML VIAL IVP SCH (09:50)
[2022-01-23] MEDS: PANTOPRAZOLE 40 MG/VIAL IVP SCH ×2 (09:50→21:30)
[2022-01-23] MEDS: FOLIC ACID 5 MG/ML VIAL IV SCH (09:51)
[2022-01-23] MEDS: THIAMINE HCL 100 MG/ML 2ML VIAL IVP SCH (09:51)
[2022-01-23] MEDS: HYDROCORTISONE SOD SUCCINATE 100 MG/2 ML VIAL IV SCH ×3 (09:51→21:58)
[2022-01-23] MEDS: CHLORHEXIDINE GLUCONATE 473 ML MOUTHWASH MM SCH ×2 (09:53→21:31)
[2022-01-23] MEDS: BALSAM PERU/CASTOR OIL 60 GM TUBE TP SCH ×2 (09:54→21:32)
[2022-01-23 10:13] LABS: HEMATOCRIT 28.1 % (42-54)
[2022-01-23] MEDS: MAGNESIUM 2GM PREMIX 50ML 50 ML IV PRN (11:37)
[2022-01-23] MEDS: MEROPENEM 1 GM VIAL IVP SCH ×2 (13:34→17:44)
[2022-01-23] MEDS: BACTRIM IV SCH ×2 (14:38→22:29)
[2022-01-23] MEDS: NACL 0.9% IV SCH ×2 (14:38→22:29)
[2022-01-23 15:56] LABS: HEMATOCRIT 28.2 % (42-54)
[2022-01-23 16:25] LABS: MAGNESIUM 2.1 mg/dL (1.80-2.40); POTASSIUM 3.4 mmol/L (3.5-5.1)
[2022-01-23] MEDS ORDERED: CLINIMIX-E 5%AA /D15%W 2000ML 2,000 ML IV SCH (18:30)
[2022-01-23 20:50] LABS: HEMATOCRIT 28.2 % (42-54)
[2022-01-23] MEDS: ARTIFICIAL TEARS 3.5 GM OINTMENT OU SCH (21:33)
[2022-01-24] VITALS (39 sets, daily range): BP systolic 113–151; BP diastolic 59–84
[2022-01-24] MEDS ORDERED: 0.9%NACL 100ML 100 ML ONE (01:19)
[2022-01-24] MEDS: MEROPENEM 1 GM VIAL IVP SCH ×3 (01:21→18:03)
[2022-01-24] MEDS: NOREPINEPHRINE 16MG/NS 250ML 250 ML IV SCH (02:45)
[2022-01-24] MEDS: DEXMEDETOMIDINE 400MCG/NS100ML IV SCH ×2 (03:49→10:52)
[2022-01-24 04:26] LABS: BASOPHILS % (AUTO) 0.1 % (0.0-5.0); LYMPHOCYTES % (AUTO) 0.8 % (21.0-51.0); MEAN CORPUSCULAR HEMOGLOBIN 26.9 pg (27.0-33.0); MEAN CORPUSCULAR HGB CONC 30.7 g/dL (32.0-36.0); MEAN CORPUSCULAR VOLUME 87.4 fL (79-99); MONOCYTES % (AUTO) 1.4 % (3.0-13.0); NUCLEATED RED BLOOD CELLS 0.1 % (0.0-0.19); PLATELET COUNT (AUTO) 86 K/uL (130-400); RED BLOOD CELL COUNT(AUTO) 3.09 MIL/uL (4.50-6.20); RED CELL DISTRIBUTION WIDTH 18.5 % (11.0-15.5); WHITE BLOOD COUNT (AUTO) 20.8 K/uL (4.8-10.8)
[2022-01-24 04:41] LABS: ALBUMIN 1.4 g/dL (3.5-5.0); CREATININE 0.9 mg/dL (0.5-1.5); POTASSIUM 3.7 mmol/L (3.5-5.1); TOTAL PROTEIN, SERUM 4.1 g/dL (6.0-8.3)
[2022-01-24 04:43] LABS: INR 1.22 (0.85-1.15); PROTHROMBIN TIME 13.1 SEC (9.6-11.6)
[2022-01-24 05:07] LABS: B-TYPE NATRIURETIC PEPTIDE 643 pg/mL (0-100)
[2022-01-24] MEDS: IPRATROPIUM/ALBUTEROL SULFATE 3 ML SOLUTION IH SCH ×4 (06:23→23:40)
[2022-01-24] MEDS: NACL 0.9% IV SCH ×3 (06:32→22:08)
[2022-01-24] MEDS: BACTRIM IV SCH ×3 (06:32→22:08)
[2022-01-24] MEDS: LEVOTHYROXINE 100MCG VIAL IV SCH (07:10)
[2022-01-24 07:54] LABS: ABG BASE EXCESS 2.8 mmol/L (-2.0-3.0); ABG HCO3 29.7 mmol/L (21.0-28.0); ABG OXYGEN SATURATION 99.8 % (95.0-99.0); ABG PCO2 55 mmHg (35-48)
[2022-01-24] MEDS: FOLIC ACID 5 MG/ML VIAL IV SCH (09:07)
[2022-01-24] MEDS: PANTOPRAZOLE 40 MG/VIAL IVP SCH ×2 (09:07→21:36)
[2022-01-24] MEDS: IRON SUCROSE COMPLEX 100 MG/5 ML VIAL IVP SCH (09:07)
[2022-01-24] MEDS: THIAMINE HCL 100 MG/ML 2ML VIAL IVP SCH (09:07)
[2022-01-24] MEDS: FLUCONAZOLE 400 MG/NS 200 ML 200 ML IV SCH (09:08)
[2022-01-24] MEDS: VANCOMYCIN 750MG VIAL IVPB SCH ×2 (09:08→21:37)
[2022-01-24] MEDS: DEXTROSE 5%-WATER 250 ML IV SCH ×2 (09:12→21:39)
[2022-01-24] MEDS: CHLORHEXIDINE GLUCONATE 473 ML MOUTHWASH MM SCH ×2 (09:14→21:39)
[2022-01-24] MEDS: BALSAM PERU/CASTOR OIL 60 GM TUBE TP SCH ×2 (09:14→22:06)
[2022-01-24] MEDS: HYDROCORTISONE SOD SUCCINATE 100 MG/2 ML VIAL IV SCH ×3 (09:30→23:36)
[2022-01-24] MEDS ORDERED: POTASSIUM CHLORIDE IV SCH ×5 (11:00)
[2022-01-24] MEDS ORDERED: [UNRECOGNIZED DRUG - OTHER] IV SCH ×5 (11:00)
[2022-01-24] MEDS ORDERED: SODIUM CL IV SCH ×5 (11:00)
[2022-01-24] MEDS ORDERED: DOBUTAMINE 250MG/D5 250ML 250 ML IV ONE (17:45)
[2022-01-24] MEDS ORDERED: ATROPINE 1MG SYG IVP ONE (17:48)
[2022-01-24] MEDS ORDERED: DOBUTAMINE 250MG/D5 250ML 250 ML IV SCH (18:00)
[2022-01-24] MEDS ORDERED: DOBUTAMINE 500 MG/D5% WATER 250 ML IV PRN (18:00)
[2022-01-24] MEDS ORDERED: ATROPINE 1MG SYG IVP PRN ×2 (18:00)
[2022-01-24] MEDS: ARTIFICIAL TEARS 3.5 GM OINTMENT OU SCH (22:07)
[2022-01-25] VITALS (24 sets, daily range): BP systolic 96–139; BP diastolic 46–86
[2022-01-25] MEDS: MEROPENEM 1 GM VIAL IVP SCH ×3 (02:03→17:12)
[2022-01-25 04:33] LABS: BASOPHILS % (AUTO) 0.1 % (0.0-5.0); HEMATOCRIT 23.8 % (42-54); LYMPHOCYTES % (AUTO) 0.5 % (21.0-51.0); MEAN CORPUSCULAR HEMOGLOBIN 26.9 pg (27.0-33.0); MEAN CORPUSCULAR HGB CONC 31.1 g/dL (32.0-36.0); MEAN CORPUSCULAR VOLUME 86.5 fL (79-99); MONOCYTES % (AUTO) 1.4 % (3.0-13.0); NEUTROPHILS % (AUTO) 90.5 % (40.0-77.0); NUCLEATED RED BLOOD CELLS 0.1 % (0.0-0.19); PLATELET COUNT (AUTO) 56 K/uL (130-400); RED BLOOD CELL COUNT(AUTO) 2.75 MIL/uL (4.50-6.20); RED CELL DISTRIBUTION WIDTH 18.7 % (11.0-15.5); WHITE BLOOD COUNT (AUTO) 16.3 K/uL (4.8-10.8)
[2022-01-25 04:49] LABS: CREATININE 0.6 mg/dL (0.5-1.5); MAGNESIUM 1.9 mg/dL (1.80-2.40); PLATELET MORPHOLOGY COMMENT DECREASED; POTASSIUM 3.6 mmol/L (3.5-5.1)
[2022-01-25] MEDS: IPRATROPIUM/ALBUTEROL SULFATE 3 ML SOLUTION IH SCH ×4 (07:23→23:07)
[2022-01-25] MEDS: NACL 0.9% IV SCH ×3 (07:25→21:26)
[2022-01-25] MEDS: BACTRIM IV SCH ×3 (07:25→21:26)
[2022-01-25] MEDS: LEVOTHYROXINE 100MCG VIAL IV SCH (07:26)
[2022-01-25] MEDS: FLUCONAZOLE 400 MG/NS 200 ML 200 ML IV SCH (09:21)
[2022-01-25] MEDS: FOLIC ACID 5 MG/ML VIAL IV SCH (09:25)
[2022-01-25] MEDS: IRON SUCROSE COMPLEX 100 MG/5 ML VIAL IVP SCH (09:26)
[2022-01-25] MEDS: THIAMINE HCL 100 MG/ML 2ML VIAL IVP SCH (09:26)
[2022-01-25] MEDS: PANTOPRAZOLE 40 MG/VIAL IVP SCH ×2 (09:26→21:21)
[2022-01-25] MEDS: CHLORHEXIDINE GLUCONATE 473 ML MOUTHWASH MM SCH ×2 (09:27→21:31)
[2022-01-25] MEDS: BALSAM PERU/CASTOR OIL 60 GM TUBE TP SCH ×2 (09:28→21:31)
[2022-01-25] MEDS: VANCOMYCIN 750MG VIAL IVPB SCH ×2 (10:51→21:21)
[2022-01-25] MEDS: DEXTROSE 5%-WATER 250 ML IV SCH ×2 (10:51→21:26)
[2022-01-25] MEDS: INSULIN HUMULIN R 100 UNIT/ML 3ML SQ SCH ×2 (12:50→17:13)
[2022-01-25] MEDS: HYDROCORTISONE SOD SUCCINATE 100 MG/2 ML VIAL IV SCH (21:20)
[2022-01-25] MEDS: ARTIFICIAL TEARS 3.5 GM OINTMENT OU SCH (21:28)
[2022-01-25] MEDS ORDERED: SODIUM CL IV SCH ×5 (21:30)
[2022-01-25] MEDS ORDERED: [UNRECOGNIZED DRUG - OTHER] IV SCH ×5 (21:30)
[2022-01-25] MEDS ORDERED: POTASSIUM CHLORIDE IV SCH ×5 (21:30)
[2022-01-25] MEDS: MAGNESIUM 2GM PREMIX 50ML 50 ML IV PRN (23:29)
[2022-01-26] VITALS (23 sets, daily range): BP systolic 96–111; BP diastolic 46–82
[2022-01-26] MEDS ORDERED: 0.9%NACL 100ML 100 ML ONE (00:50)
[2022-01-26] MEDS: MEROPENEM 1 GM VIAL IVP SCH ×3 (01:21→17:35)
[2022-01-26 05:43] LABS: BASOPHILS % (AUTO) 0.1 % (0.0-5.0); HEMATOCRIT 21.9 % (42-54); LYMPHOCYTES % (AUTO) 0.6 % (21.0-51.0); MEAN CORPUSCULAR HEMOGLOBIN 26.8 pg (27.0-33.0); MEAN CORPUSCULAR HGB CONC 30.1 g/dL (32.0-36.0); MONOCYTES % (AUTO) 1.2 % (3.0-13.0); NEUTROPHILS % (AUTO) 91.4 % (40.0-77.0); PLATELET COUNT (AUTO) 59 K/uL (130-400); RED BLOOD CELL COUNT(AUTO) 2.46 MIL/uL (4.50-6.20); WHITE BLOOD COUNT (AUTO) 13.9 K/uL (4.8-10.8)
[2022-01-26 05:59] LABS: CREATININE 0.5 mg/dL (0.5-1.5); MAGNESIUM 2.1 mg/dL (1.80-2.40); POTASSIUM 3.8 mmol/L (3.5-5.1)
[2022-01-26] MEDS: INSULIN HUMULIN R 100 UNIT/ML 3ML SQ SCH ×4 (06:00→18:00)
[2022-01-26] MEDS: LEVOTHYROXINE 100MCG VIAL IV SCH (06:46)
[2022-01-26] MEDS: IPRATROPIUM/ALBUTEROL SULFATE 3 ML SOLUTION IH SCH ×3 (06:57→18:30)
[2022-01-26] MEDS: NACL 0.9% IV SCH ×2 (07:17→14:40)
[2022-01-26] MEDS: BACTRIM IV SCH ×2 (07:17→14:40)
[2022-01-26] MEDS: IRON SUCROSE COMPLEX 100 MG/5 ML VIAL IVP SCH (09:26)
[2022-01-26] MEDS: VANCOMYCIN 750MG VIAL IVPB SCH (09:27)
[2022-01-26] MEDS: HYDROCORTISONE SOD SUCCINATE 100 MG/2 ML VIAL IV SCH (09:27)
[2022-01-26] MEDS: THIAMINE HCL 100 MG/ML 2ML VIAL IVP SCH (09:27)
[2022-01-26] MEDS: DEXTROSE 5%-WATER 250 ML IV SCH (09:27)
[2022-01-26] MEDS: FLUCONAZOLE 400 MG/NS 200 ML 200 ML IV SCH (09:27)
[2022-01-26] MEDS: BALSAM PERU/CASTOR OIL 60 GM TUBE TP SCH (09:28)
[2022-01-26] MEDS: CHLORHEXIDINE GLUCONATE 473 ML MOUTHWASH MM SCH (09:28)
[2022-01-26] MEDS: PANTOPRAZOLE 40 MG/VIAL IVP SCH (09:28)
[2022-01-26] MEDS: FOLIC ACID 5 MG/ML VIAL IV SCH (11:41)
[2022-01-26] MEDS ORDERED: HYDROCORTISONE SOD SUCCINATE 100 MG/2 ML VIAL IV SCH (21:00)
== END 2022-01-26 19:06 | DRG 974 ==
LOC: EDH 20:10 → EDHIP 20:11 → 2BH 01-15 10:56 → 2CH 01-17 20:31
PROVIDERS: ADMIT Internal Medicine; ATTEND Internal Medicine
PROC: 0BH17EZ Insertion of Endotracheal Airway into Trachea, Via Natural or Artificial Opening (ICD-10-PCS; principal; 2022-01-15)
PROC: 5A1945Z Respiratory Ventilation, 24-96 Consecutive Hours (ICD-10-PCS; 2022-01-15)
PROC: 02HV33Z Insertion of Infusion Device into Superior Vena Cava, Percutaneous Approach (ICD-10-PCS; 2022-01-15)
PROC: 5A09357 Assistance with Respiratory Ventilation, Less than 24 Consecutive Hours, Continuous Positive Airway Pressure (ICD-10-PCS; 2022-01-15)
PROC: 30233R1 Transfusion of Nonautologous Platelets into Peripheral Vein, Percutaneous Approach (ICD-10-PCS; 2022-01-17)
PROC: 5A09357 Assistance with Respiratory Ventilation, Less than 24 Consecutive Hours, Continuous Positive Airway Pressure (ICD-10-PCS; 2022-01-19)
PROC: 5A09357 Assistance with Respiratory Ventilation, Less than 24 Consecutive Hours, Continuous Positive Airway Pressure (ICD-10-PCS; 2022-01-20)
PROC: 5A09357 Assistance with Respiratory Ventilation, Less than 24 Consecutive Hours, Continuous Positive Airway Pressure (ICD-10-PCS; 2022-01-21)
PROC: 30233N1 Transfusion of Nonautologous Red Blood Cells into Peripheral Vein, Percutaneous Approach (ICD-10-PCS; 2022-01-22)
PROC: 5A09357 Assistance with Respiratory Ventilation, Less than 24 Consecutive Hours, Continuous Positive Airway Pressure (ICD-10-PCS; 2022-01-22)
PROC: 5A09357 Assistance with Respiratory Ventilation, Less than 24 Consecutive Hours, Continuous Positive Airway Pressure (ICD-10-PCS; 2022-01-23)
PROC: 5A09357 Assistance with Respiratory Ventilation, Less than 24 Consecutive Hours, Continuous Positive Airway Pressure (ICD-10-PCS; 2022-01-24)
PROC: 5A09357 Assistance with Respiratory Ventilation, Less than 24 Consecutive Hours, Continuous Positive Airway Pressure (ICD-10-PCS; 2022-01-25)
PROC: 5A09357 Assistance with Respiratory Ventilation, Less than 24 Consecutive Hours, Continuous Positive Airway Pressure (ICD-10-PCS; 2022-01-26)
DX: A41.9 Sepsis, unspecified organism (principal); E43 Unspecified severe protein-calorie malnutrition; B20 Human immunodeficiency virus [HIV] disease; Z20.822 Contact with and (suspected) exposure to COVID-19; J96.01 Acute respiratory failure with hypoxia; Z66 Do not resuscitate; R65.21 Severe sepsis with septic shock; G93.41 Metabolic encephalopathy; J18.9 Pneumonia, unspecified organism; I50.41 Acute combined systolic (congestive) and diastolic (congestive) heart failure; E87.0 Hyperosmolality and hypernatremia; R64 Cachexia; N39.0 Urinary tract infection, site not specified; D68.9 Coagulation defect, unspecified; J44.0 Chronic obstructive pulmonary disease with (acute) lower respiratory infection; J98.11 Atelectasis; I31.39 Other pericardial effusion (noninflammatory); Z68.1 Body mass index [BMI] 19.9 or less, adult; I46.9 Cardiac arrest, cause unspecified; E16.2 Hypoglycemia, unspecified; K72.90 Hepatic failure, unspecified without coma; D63.8 Anemia in other chronic diseases classified elsewhere; D50.9 Iron deficiency anemia, unspecified; D70.9 Neutropenia, unspecified; E88.09 Other disorders of plasma-protein metabolism, not elsewhere classified; R62.7 Adult failure to thrive; Z51.5 Encounter for palliative care; Z91.199 Patient's noncompliance with other medical treatment and regimen due to unspecified reason; Z59.00 Homelessness unspecified; Z91.14 Patient's other noncompliance with medication regimen
CPT/HCPCS: 31500; 36415; 36600; 70450; 71045; 71250; 80048; 80053; 80202; 80305; 81001; 82140; 82435; 82550; 82607; 82728; 82746; 82803; 82947; 82948; 83540; 83550; 83605; 83615; 83690; 83735; 83874; 83880; 84100; 84132; 84145; 84295; 84443; 84484; 85014; 85018; 85025; 85045; 85610; 85651; 86359; 86360; 86361; 86850; 86900; 86901; 86923; 87040; 87071; 87116; 87205; 87206; 87281; 87635; 87804; 93005; 93306; 93356; 93971; 94002; 94003; 94640; 94660; 94664; 94667; 94668; C1751; C1894; C9113; G0378; J0171; J0461; J0610; J1250; J1450; J1644; J1720; J1756; J1815; J1940; J2185; J2370; J2405; J2543; J2760; J2920; J3010; J3370; J3411; J3475; J3480; J3490; J7030; J7040; J7050; J7060; J7070; J7131; P9016; P9034; P9046; P9047